=== PATIENT | female | born 1995 | race Caucasian/White ===

== ENCOUNTER 2018-05-06 20:30 | Emergency (ER) | payer BC ==
[2018-05-06] MEDS: HYDROCODONE/APAP (5/325) TAB PO (21:42)
[2018-05-06] MEDS: ONDANSETRON (ODT) 4 MG TAB ODT (21:43)
== END 2018-05-06 23:39 | disposition home or self-care (01) ==
LOC: FTE 20:30
DX: S09.90XA Unspecified injury of head, initial encounter (principal); R94.02 Abnormal brain scan; V00.121A Fall from non-in-line roller-skates, initial encounter
CPT/HCPCS: 70450; 99284-25